=== PATIENT | male | born 1970 ===

== ENCOUNTER 2022-07-27 11:56 | Emergency (ER) | payer SELFPAY ==
[2022-07-27] MEDS ORDERED: HYDROcodone/ACETAMINOPHEN 5-325 MG TAB PO ONE (17:55)
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
[2022-07-27 19:33] VITALS: BP 131/78
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
== END 2022-07-27 19:33 | disposition home or self-care (01) ==
LOC: ED 11:56
DX: S16.1XXA Strain of muscle, fascia and tendon at neck level, initial encounter (principal); S40.011A Contusion of right shoulder, initial encounter; S20.212A Contusion of left front wall of thorax, initial encounter; S09.90XA Unspecified injury of head, initial encounter; F17.200 Nicotine dependence, unspecified, uncomplicated; V89.2XXA Person injured in unspecified motor-vehicle accident, traffic, initial encounter; Y93.89 Activity, other specified; Y92.89 Other specified places as the place of occurrence of the external cause; Y99.8 Other external cause status
CPT/HCPCS: 70450; 72072; 72125; 99284